=== PATIENT | male | born 1995 | race Caucasian/White ===

== ENCOUNTER 2020-10-25 18:50 | Emergency (ER) | payer OTHER, SELFPAY ==
[2020-10-25 18:58] VITALS: BP 162/75; PULSE 100; RESP 14; TEMP 37; O2SAT 100; BMI 27.3
--- NOTE | 2020-10-25 18:59 | ED.FALL ---
HPI - Fall General Chief Complaint: Fall Stated Complaint: rt shoulder injury Time Seen by Provider: 10/25/20 18:58 Source: patient Mode of arrival: Ambulatory Limitations: no limitations History of Present Illness HPI Narrative: 24-year-old male who [place] and landed directly onto his right shoulder. Had pain immediately afterwards especially with movement of his shoulder. [place] and was [place] in a triangle bandage. He arrived to this emergency department by private vehicle. No other injuries from the event except for pain to his right shoulder. No medications given prior to arrival. Related Data Allergies Allergy/AdvReac Type Severity Reaction Status Date / Time No Known Drug Allergies Allergy Verified 10/25/20 18:58 Review of Systems Constitutional Constitutional: Denies headache(s) ENT Ears, Nose, Mouth, and Throat: Denies headache(s) Cardiovascular Cardiovascular: Denies chest pain and Denies dyspnea Respiratory Respiratory: Denies dyspnea Musculoskeletal Comments: Right shoulder pain Integumentary/Breasts Skin/Breast: Denies lesions and Denies rash Neurologic Neurologic: Denies headache(s) Hematologic/Lymphatic Hematologic/Lymphatic: Denies easy bleeding and Denies easy bruising Allergic/Immunologic Allergic/Immunologic: Denies urticaria Patient History Medical History Healthy adult Social History Smoking Status: Unknown if ever smoked Exam Initial Vital Signs Initial Vital Signs: Vital Signs Temperature 98.6 F 10/25/20 18:58 Pulse Rate 100 H 10/25/20 18:58 Respiratory Rate 14 10/25/20 18:58 Blood Pressure 162/75 H 10/25/20 18:58 Pulse Oximetry 100 10/25/20 18:58 Const General: cooperative and comfortable Limitations: mental status not altered HENMT Head: normal to inspection and normocephalic Chest Other: Tenderness to palpation right anterior shoulder with crepitus felt over the clavicle Cardio Pulses: radial pulses present on the right Skin Lesions: no lesions Rashes: no rashes Neuro Sensory Exam: no sensory deficits noted Extrem Other: Tenderness to palpation over the right clavicle. Does have pain with movement of his right shoulder. Right elbow, right wrist right hand unremarkable Psych Appearance: grossly normal and well kempt Procedures Orthopedic Splinting/Casting Injury #1: Side: right Upper Extremity Injury Location: clavicle Other Orthopedic Equipment: other (Sling) Post splinting neuro exam: intact Post splinting vascular exam: intact Placed by: Nursing Course Orders Ordered: ED Orders 10/25/20 19:07 XR clavicle RT Stat XR shoulder RT min 2V Stat Discontinued Medications Hydrocodone Bitart/Acetaminophen (Hydrocodone/Acet 5/325 Prepack) 1 bottle MISC SEEINSTR ONE Stop: 10/25/20 19:39 Last Admin: 10/25/20 20:07 Dose: 1 bottle Documented by: CELENA Vital Signs Vital signs: Vital Signs - 8 hr 10/25/20 18:58 10/25/20 20:07 10/25/20 20:25 Temperature 98.6 F Pulse Rate 100 H 89 89 Respiratory Rate 14 17 Blood Pressure 162/75 H 155/77 H 141/92 H Pulse Oximetry 100 99 100 MDM - Fall Imaging Data Clavicle x-ray: Radiologist's Impression: [address] [id number] ReportSigned Patient: Dyllan Parra [facility]#: [id number]: 1995Acct:[id number]/Sex: 24 / MDate of Service: 10/25/20Loc: EDAccession Number: [id number] Procedure: XR clavicle RT Ordering Provider: Matt Ugalde D.O. PROCEDURE: XR CLAVICLE RT INDICATIONS: fall with pain TECHNIQUE: 2 views of the clavicle were acquired. COMPARISON: None. FINDINGS: Bones: Moderately displaced, mildly comminuted midshaft right clavicle fracture with overlapping of proximal and distal fracture fragments by about 2.3 cm. No definite shoulder separation. No suspicious bony lesions. Soft tissues: No suspicious soft tissue calcifications. IMPRESSION: Midshaft right clavicle fracture. Dictated by: Rhonda Ocampo M.D. on 10/25/2020 at 19:55 Approved by: Rhonda Ocampo M.D. on 10/25/2020 at 19:56 Extremity x-ray #1: Radiologist's Impression: [address] [id number] ReportSigned Patient: Dyllan Parra [facility]#: [id number]: 1995Acct:[id number]/Sex: MDate of Service: 10/25/20Loc: EDAccession Number: [id number] Procedure: XR shoulder RT min 2V Ordering Provider: Matt Ugalde D.O. PROCEDURE: XR SHOULDER RT MIN 2V INDICATIONS: fall with shoulder pain TECHNIQUE: To views of the shoulder were acquired. COMPARISON: None. FINDINGS: Bones: Displaced, mildly comminuted midshaft right clavicle fracture. The acromioclavicular and coracoclavicular intervals are intact. Glenohumeral joint appears normal without dislocation.. No suspicious bony lesions. Visualized ribs appear intact. Soft tissues: No suspicious soft tissue calcifications. IMPRESSION: 1. Intact right shoulder. 2. Comminuted right clavicle fracture. Dictated by: Rhonda Ocampo M.D. on 10/25/2020 at 19:56 Approved by: Rhonda Ocampo M.D. on 10/25/2020 at 19:56 [facility] Narrative Medical decision making narrative: Patient is neurovascularly intact. Has a fracture to his right clavicle. There is no dislocation or fracture was right shoulder. He has no tenting of the skin over the fracture. Discussed the case with Dr. Velez with orthopedics who recommended follow-up as an outpatient as this is most likely going to require surgery to repair. Patient is active duty. He was given a copy of his x-rays on a CD. He was sent home in a sling. He is given pain medication. Given follow-up instructions. He expressed understanding agreement. Discharge Plan Departure Patient Disposition: Home Clinical Impression: Clavicular fracture Qualifiers: Encounter type: initial encounter Clavicle location: shaft Fracture alignment: displaced Laterality: right Instructions: How to Use a Sling, Clavicle Fracture Activity Restrictions/Additional Instructions: [place] Take the CD with your x-rays on them to the department. He can also contact the [facility] at [phone]. I did discuss your case tonight with Dr. Velez. Wear the sling like we discussed. You can take Tylenol and/or ibuprofen for any discomfort. Return to the emergency department for any new or worsening symptoms
--- NOTE | 2020-10-25 19:07 | DI.RAD.S_ITS ---
PROCEDURE: XR CLAVICLE RT INDICATIONS: fall with pain TECHNIQUE: 2 views of the clavicle were acquired. COMPARISON: None. FINDINGS: Bones: Moderately displaced, mildly comminuted midshaft right clavicle fracture with overlapping of proximal and distal fracture fragments by about 2.3 cm. No definite shoulder separation. No suspicious bony lesions. Soft tissues: No suspicious soft tissue calcifications. IMPRESSION: Midshaft right clavicle fracture. Dictated by: Rhonda Ocampo M.D. on 10/25/2020 at 19:55 Approved by: Rhonda Ocampo M.D. on 10/25/2020 at 19:56
--- NOTE | 2020-10-25 19:07 | DI.RAD.S_ITS ---
PROCEDURE: XR SHOULDER RT MIN 2V INDICATIONS: fall with shoulder pain TECHNIQUE: To views of the shoulder were acquired. COMPARISON: None. FINDINGS: Bones: Displaced, mildly comminuted midshaft right clavicle fracture. The acromioclavicular and coracoclavicular intervals are intact. Glenohumeral joint appears normal without dislocation.. No suspicious bony lesions. Visualized ribs appear intact. Soft tissues: No suspicious soft tissue calcifications. IMPRESSION: 1. Intact right shoulder. 2. Comminuted right clavicle fracture. Dictated by: Rhonda Ocampo M.D. on 10/25/2020 at 19:56 Approved by: Rhonda Ocampo M.D. on 10/25/2020 at 19:56
--- NOTE | 2020-10-25 19:51 | PC.NURSE ---
Patient states that he was skiing faster than he was comfortable he hit ice then slipped and fell from 5-10 feet off the ground. He was alert and oriented at time of entrance to the ED. He had no visible deformity anywhere on his body other than his right collar bone area. He reports tenderness on his right scapular region. He states that his pain is 3/10 unless he moves his right shoulder. He complains of no pain anywhere else.
[2020-10-25 20:07] VITALS: BP 155/77; PULSE 89; O2SAT 99
[2020-10-25] MEDS: HYDROCODONE/ACET 5/325 PREPACK 1 BOTTLE MISC (20:07)
[2020-10-25 20:25] VITALS: BP 141/92; PULSE 89; RESP 17; O2SAT 100
== END 2020-10-25 20:26 | disposition home or self-care (01) ==
PROVIDERS: Emergency Provider Emergency Medicine
DX: S42.021A Displaced fracture of shaft of right clavicle, initial encounter for closed fracture (principal); V00.321A Fall from snow-skis, initial encounter
CPT/HCPCS: 73000; 73030; 99283; 99284